=== PATIENT | female | born 1950 | race Caucasian/White ===

== ENCOUNTER 2016-08-22 12:25 | Inpatient (IN) | payer MEDICARE, OTHER ==
[~2016-08-22] VITALS: Ht 165.1 cm; Wt 75.7 kg
[~2016-08-22 12:25] MED LIST: ATOR40TA28 PO; DSS100 PO; GLIP5 PO; METF500T4 PO; MULT-264 PO; PANT40TA25 PO; SIMV-260 PO; SITA50 PO
[2016-08-22 12:57] LABS: GLUCOSE,POINT OF CARE 188 MG/DL (70-110)
[2016-08-22] MEDS ORDERED: SODIUM CHLORIDE 0.9% 1,000 ML IV ONE (15:00)
[2016-08-22] MEDS ORDERED: BARIUM SULFATE 0.1% SUSPENSION 450 ML BOTTLE PO ONE (15:00)
[2016-08-22] MEDS ORDERED: MORPHINE SULFATE 4 MG/ML SYRINGE IVP ONE (15:00)
[2016-08-22 15:06] LABS: BASOPHILS % (AUTO) 0.3 % (0.0-2.0); EOSINOPHILS % (AUTO) 0.1 % (1.0-6.0); HEMATOCRIT 37.9 % (36-46); HEMOGLOBIN 12.3 g/dL (12.0-16.0); LYMPHOCYTES # (AUTO) 1.5 K/uL (1.0-4.8); LYMPHOCYTES % (AUTO) 11.7 % (22.0-44.0); MEAN CORPUSCULAR HEMOGLOBIN 27.7 pg (26.0-34.0); MEAN CORPUSCULAR HGB CONC 32.5 G/dL (31.0-37.0); MEAN CORPUSCULAR VOLUME 85 fL (80-100); MONOCYTES # (AUTO) 0.7 K/uL (0.1-1.0); MONOCYTES % (AUTO) 5.7 % (2.0-9.0); NEUTROPHILS # (AUTO) 10.3 K/uL (1.8-7.7); NEUTROPHILS % (AUTO) 82.2 % (40.0-70.0); PLATELET COUNT (AUTO) 326 K/uL (150-450); RED BLOOD CELL COUNT(AUTO) 4.43 MIL/uL (4.00-5.20); RED CELL DISTRIBUTION WIDTH 13.9 % (11.5-14.5); WHITE BLOOD COUNT (AUTO) 12.5 K/uL (4.5-11.0)
[2016-08-22 15:19] LABS: CALCIUM, TOTAL 9.1 mg/dL (8.8-10.5); CREATININE 1.12 mg/dL (0.60-1.30); POTASSIUM 4.7 mmol/L (3.5-5.1)
[2016-08-22 15:29] LABS: ALBUMIN 3.5 g/dL (3.4-5.0); BILIRUBIN,TOTAL 1.1 mg/dL (0.1-1.0); TOTAL PROTEIN, SERUM 7.8 g/dL (6.4-8.2)
[2016-08-22] MEDS ORDERED: SODIUM CHLORIDE 0.9% 100 ML ONE (16:44)
[2016-08-22] MEDS ORDERED: IOVERSOL 320 MG/ML 100 ML VIAL ONE (16:44)
[2016-08-22] MEDS ORDERED: ACETAMINOPHEN 325 MG TABLET PO PRN (18:30)
[2016-08-22] MEDS ORDERED: ONDANSETRON HCL 4 MG/2 ML VIAL IVP PRN (18:30)
[2016-08-22 20:59] VITALS: BP 135/62
[2016-08-22 22:12] LABS: GLUCOSE,POINT OF CARE 144 MG/DL (70-110)
[2016-08-22 23:25] VITALS: BP 133/63
[2016-08-23] MEDS ORDERED: IPRATROPIUM BROMIDE 0.5 MG/2.5 ML NEB SOLUTION NEB PRN (01:00)
[2016-08-23] MEDS ORDERED: BISACODYL 10 MG RECTAL RECTAL SUPPOSITORY PR ONE (01:00)
[2016-08-23] MEDS ORDERED: ALBUTEROL SULFATE 2.5 MG/0.5 ML NEB SOLUTION NEB PRN (01:00)
[2016-08-23] MEDS ORDERED: DEXTROSE 50%-WATER 25 GM/50 ML SYRINGE IVP PRN (01:00)
[2016-08-23] MEDS ORDERED: HYDROCODONE/ACETAMINOPHEN 5-325 MG TABLET PO PRN (01:00)
[2016-08-23] MEDS ORDERED: ACETAMINOPHEN 325 MG TABLET PO PRN (01:00)
[2016-08-23] MEDS ORDERED: ONDANSETRON HCL 4 MG/2 ML VIAL IVP PRN (01:00)
[2016-08-23] MEDS ORDERED: ZOLPIDEM TARTRATE 5 MG TABLET PO PRN (01:00)
[2016-08-23] MEDS ORDERED: MORPHINE SULFATE 4 MG/ML SYRINGE IVP PRN (01:00)
[2016-08-23] MEDS ORDERED: BISACODYL 10 MG RECTAL RECTAL SUPPOSITORY PR PRN (01:00)
[2016-08-23] MEDS ORDERED: MAGNESIUM HYDROXIDE SUSPENSION 30 ML UDCUP PO PRN (01:00)
[2016-08-23] MEDS ORDERED: PEG 3350/NA SULF,BICARB,CL/KCL 4000 ML SOLUTION PO ONE (01:30)
[2016-08-23 03:37] VITALS: BP 148/71
[2016-08-23] MEDS: INSULIN REGULAR, HUMAN 100 UNITS/ML SQ PRN ×2 (05:33→11:50)
[2016-08-23 05:57] LABS: GLUCOSE COMMENT 1 Received Meds; GLUCOSE,POINT OF CARE 203 MG/DL (70-110)
[2016-08-23] MEDS ORDERED: GlipiZIDE 5 MG TABLET PO SCH (06:30)
[2016-08-23 07:59] VITALS: BP 101/46
[2016-08-23] MEDS ORDERED: HEPARIN SODIUM,PORCINE 5,000 UNITS/ML VIAL SQ SCH (08:00)
[2016-08-23] MEDS ORDERED: MULTIVITAMINS, THERAPEUTIC TABLET PO SCH (09:00)
[2016-08-23] MEDS ORDERED: DOCUSATE SODIUM 100 MG CAPSULE PO SCH ×2 (09:00)
[2016-08-23] MEDS ORDERED: SitaGLIPtin PHOSPHATE 50 MG TABLET PO SCH (09:00)
[2016-08-23] MEDS ORDERED: PANTOPRAZOLE SODIUM 40 MG/VIAL IVP SCH (09:00)
[2016-08-23 11:48] VITALS: BP 138/72
[2016-08-23 19:07] LABS: GLUCOSE,POINT OF CARE 143 MG/DL (70-110)
[2016-08-23] MEDS ORDERED: SIMVASTATIN 20 MG TABLET PO SCH (21:00)
[2016-08-23] MEDS ORDERED: ATORVASTATIN CALCIUM 40 MG TABLET PO SCH (21:00)
== END 2016-08-23 15:25 | disposition home or self-care (01) | DRG 392 ==
LOC: EMS 12:41 → 6N 18:29
PROVIDERS: ADMIT Hospitalist; ATTEND Hospitalist
DX: K59.00 Constipation, unspecified (principal); K21.9 Gastro-esophageal reflux disease without esophagitis; I10 Essential (primary) hypertension; E78.00 Pure hypercholesterolemia, unspecified; E11.9 Type 2 diabetes mellitus without complications; K56.41 Fecal impaction; Z88.6 Allergy status to analgesic agent; Z79.84 Long term (current) use of oral hypoglycemic drugs; Z79.899 Other long term (current) drug therapy; Z98.890 Other specified postprocedural states; Z82.49 Family history of ischemic heart disease and other diseases of the circulatory system; Z83.3 Family history of diabetes mellitus
CPT/HCPCS: 74177; 82962; 96361; 96374; 99285; C9113; J1644; J2270; J2405; J7030; J7050

== ENCOUNTER 2019-02-01 06:58 | Emergency (ER) | payer MEDICARE, OTHER ==
[~2019-02-01] VITALS: Ht 162.6 cm; Wt 68.2 kg
[~2019-02-01 06:58] MED LIST changes: +CLOP75TA3 PO; +DOCU-281 PO; +METF-960 PO; -METF500T4 PO
[2019-02-01 07:15] VITALS: BP 108/71
[2019-02-01] MEDS ORDERED: PredniSONE 20 MG TABLET PO ONE (08:00)
[2019-02-01] MEDS ORDERED: DiphenhydrAMINE HCL 25 MG CAPSULE PO ONE (08:00)
[2019-02-01] MEDS ORDERED: INSULIN REGULAR, HUMAN 100 UNITS/ML SQ ONE (08:00)
== END 2019-02-01 08:37 | disposition home or self-care (01) ==
LOC: EMS 06:58
DX: L50.9 Urticaria, unspecified (principal); E11.65 Type 2 diabetes mellitus with hyperglycemia; E78.00 Pure hypercholesterolemia, unspecified; E11.36 Type 2 diabetes mellitus with diabetic cataract; K21.9 Gastro-esophageal reflux disease without esophagitis; M32.9 Systemic lupus erythematosus, unspecified; Z88.6 Allergy status to analgesic agent; Z88.8 Allergy status to other drugs, medicaments and biological substances
CPT/HCPCS: 82962; 96372; 99283; J1815; J7512

== ENCOUNTER 2019-12-21 13:09 | Emergency (ER) | payer MEDICARE, MEDICAID ==
[~2019-12-21] VITALS: Ht 160 cm; Wt 59.1 kg
[~2019-12-21 13:09] MED LIST changes: -CLOP75TA3 PO; -DOCU-281 PO; -DSS100 PO; +FURO40 PO; +GABA-1181 PO; -GLIP5 PO; -METF-960 PO; +METO25XL PO; -MULT-264 PO; -PANT40TA25 PO; -SIMV-260 PO; -SITA50 PO; +SPIR25 PO
[2019-12-21 13:11] VITALS: BP 135/64
== END 2019-12-21 15:04 | disposition home or self-care (01) ==
LOC: EMS 13:15
DX: J90 Pleural effusion, not elsewhere classified (principal); I11.0 Hypertensive heart disease with heart failure; K21.9 Gastro-esophageal reflux disease without esophagitis; E78.00 Pure hypercholesterolemia, unspecified; I10 Essential (primary) hypertension; Z88.6 Allergy status to analgesic agent; Z48.02 Encounter for removal of sutures; Z79.899 Other long term (current) drug therapy
CPT/HCPCS: 71046; 71046-TC

== ENCOUNTER 2021-11-05 17:07 | Emergency (ER) | payer OTHER, MEDICAID ==
[~2021-11-05] VITALS: Ht 165.1 cm; Wt 63.6 kg
[~2021-11-05 17:07] MED LIST changes: +ERGO500054 PO; -FURO40 PO; +LISI-894 PO; +SPIR-37 PO; -SPIR25 PO
[2021-11-05] MEDS ORDERED: NIFE10CA50 PO (17:15)
[2021-11-05] MEDS ORDERED: BUME1TAB34 PO (17:15)
[2021-11-05 20:25] VITALS: BP 135/63
== END 2021-11-05 21:01 | disposition home or self-care (01) ==
LOC: EMS 17:14
DX: U07.1 COVID-19 (principal); I11.0 Hypertensive heart disease with heart failure; I50.9 Heart failure, unspecified; E78.00 Pure hypercholesterolemia, unspecified; E11.9 Type 2 diabetes mellitus without complications; K21.9 Gastro-esophageal reflux disease without esophagitis; Z88.6 Allergy status to analgesic agent; Z79.899 Other long term (current) drug therapy
CPT/HCPCS: 82962; 99282